=== PATIENT | male | born 1950 | race Caucasian/White ===

== ENCOUNTER → 2016-12-21 | Outpatient (CLI) | payer MEDICARE ==
[~2016-12-21] MED LIST: IOHEXOL 300 MG/ML 75 ML VIAL IV ONE
--- NOTE | 2016-12-21 14:00 | RAD ---
Exam performed: Ultrasound evaluation of the right neck. History: Palpable lump. Date of service: 12/21/16. Comparison: None available Discussion: Targeted sonographic evaluation of the right subareolar region is performed with an area of palpable concern. There is a large solid mass containing cystic area in internal vascularity measuring 3.1 x 2.3 x 2.6 cm. Impression: Large solid vascular mass in the right submental region. The etiology of this mass is not clear and may be related to an enlarged abnormal lymph node. Evaluation with CT neck with contrast may be of additional benefit.
--- NOTE | 2016-12-21 16:01 | RAD ---
CT scan of the neck with contrast 12/21/2016 Clinical history: Right neck mass. Technique: After the intravenous administration of 75 cc of Omnipaque 300, contiguous, 3 mm axial sections were obtained through the neck. A radiopaque marker was placed along the right neck in the area where the patient feels a palpable abnormality. Findings: Comparison is made to patient's ultrasound of the right neck performed earlier today. Within the inferior aspect of the right parotid gland a rounded slightly heterogeneous solid mass is seen. This measures 2.8 x 2.8 x 2.2 cm in transverse, craniocaudal and AP dimensions. This corresponds to the abnormality seen on the patient's ultrasound. It corresponds to the patient's palpable abnormality. Its CT appearance is nonspecific. Differential considerations would include a pleomorphic adenoma versus Warthin's tumor. A malignant lesion such as mucoepidermoid carcinoma carcinoma is not excluded. No additional abnormality of the right parotid gland is seen. The left parotid gland, submandibular glands and thyroid gland are within normal limits. The mucosal structures of the nasopharynx, oropharynx, hypopharynx and larynx are within normal limits. No cervical lymphadenopathy is seen. A 1.7 cm mucous retention cyst is seen involving the right maxillary sinus. Degenerative changes are seen involving the uncovertebral and facet joints throughout the cervical spine. Impression: 2.8 cm solid rounded slightly heterogeneous mass is seen involving the inferior aspect of the right parotid gland. This corresponds to the patient's palpable abnormality. Differential considerations include a pleomorphic adenoma or Warthin's tumors. A malignant lesion such as a mucoepidermoid carcinoma is not excluded.
== END | disposition home or self-care (01) ==
LOC: US 14:13
PROVIDERS: ATTEND Otolaryngology
DX: K11.8 Other diseases of salivary glands (principal)
CPT/HCPCS: 70491; 76881; Q9967

== ENCOUNTER → 2017-01-04 | Outpatient (CLI) | payer MEDICARE ==
[~2017-01-04] VITALS: Ht 167.6 cm; Wt 102.1 kg
[~2017-01-04] MED LIST changes: -IOHEXOL 300 MG/ML 75 ML VIAL IV ONE; +LIDOCAINE 1% / SOD BICARB 8.4% 20 ML VIAL. IJ ONE; +PRAV80TA2 PO
[2017-01-04 12:41] LABS: PROTHROMBIN TIME PATIENT 12.3 SEC (11.7-14.0)
[2017-01-04 12:45] VITALS: BP 152/103
--- NOTE | 2017-01-04 14:45 | RAD ---
Ultrasound-guided fine needle aspiration and core biopsy of right parotid mass 01/04/2017 Indication: Right parotid mass, present for approximately 10 years, slowly growing according to patient. Discussion: The risks and benefits of the procedure were discussed the patient. Informed consent was obtained. Timeout procedure was performed. The right face was prepped and draped using sterile barrier technique. 1% lidocaine without epinephrine was administered to the skin for local anesthesia. Ultrasound evaluation demonstrated a heterogenous predominantly hypoechoic mass in the right parotid gland. Cystic areas within the mass were also noted. Some mild internal blood flow and possible areas of punctate calcification is seen. Under direct ultrasound guidance 4 passes with a 25-gauge needle were made through the mass. Pathology was present at the time of exam spelled FNA samples may be suboptimal. 2 passes with automated 20-gauge core biopsy needle were then made. Manual pressure was held for several minutes. Repeat ultrasound demonstrated no evidence of hematoma or other complication. Impression: Successful ultrasound-guided biopsy of right parotid mass as described
--- NOTE | 2017-01-06 13:05 | PATHOLOGY ---
PATHOLOGY REPORT * * * * * * * * FINAL DIAGNOSIS: Parotid, "right parotid mass biopsy": - Chronic inflammation and fibrosis. (see comment) COMMENT: There is no evidence of malignancy. Correlate with fine needle aspiration ([id number]). Suggest clinical and radiological correlation as the biopsy may not be statement services representative. This case is also reviewed by Dr. Holly Santoyo who agrees with the diagnosis (SHA:mgr; 01/05/2017) REPORT ELECTRONICALLY SIGNED BY: Nacho Freeman M.D. DATE/TIME: 01/06/2017 13:04 * * * * * * * * GROSS PATHOLOGY: Specimen received fresh labeled "Princess Minor", right parotid mass biopsy consists of a minute lazo piece of tissue measuring 0.1 cm in greatest dimension, all submitted in cassette labeled A1. Due to the minute nature of the biopsy, it may not survive processing. (SHA:rljose; 01/04/2017) INITIAL CPT CODE(S): A; 61595 Professional services performed [place] [address] Technical services performed by [facility] at [address] [place] [address] [address] [address]. SPECIMEN(S) RECEIVED: A.Right parotid mass CLINICAL HISTORY: Right parotid mass, 3 cm. PROCEDURE: Right parotid F and A. PATIENT: PRINCESS MINOR /AGE: 7 1950 (Age: 66) PATIENT #: [id number] ALT CASE #: SPECIMEN COLLECTION DATE: 01/04/2017 SPECIMEN RECEIVED DATE: 01/04/2017 [facility] - [address] [place] [address] - PHONE: [phone] * * * END OF REPORT * * *
--- NOTE | 2017-01-06 13:17 | PATHOLOGY ---
CYTOPATHOLOGY REPORT CLINICAL HISTORY: Right parotid mass 3.0 cm. See also [id number]. SPECIMEN(S) RECEIVED: A.Fine needle aspiration, Right parotid mass 3.0 cm FINAL DIAGNOSIS: Fine needle aspiration, right parotid mass 3.0 cm: - Myoepithelial cells admixed with stromal elements. - (see comment) COMMENT: These features are seen in pleomorphic adenoma. However, other parotid neoplasms cannot be entirely excluded as these can also be seen in other parotid lesions. The material aspirated may not be farm loan representative. This case is also reviewed by Dr. Holly Santoyo. (SHA:mgr; 01/05/2017) PATHOLOGIST: Nacho Freeman M.D. REPORT ELECTRONICALLY SIGNED BY: Nacho Freeman M.D. DATE/TIME: 01/06/2017 13:16 GROSS PATHOLOGY: A. Fine needle aspiration, Right parotid mass 3.0 cm: The specimen is labeled "Princess Minor" and consists of six fixed slides, five air dried slides. Thirty mL of clear colorless fluid in fixative from the needle rinse is also submitted and one ThinPrep slide and an alcohol fixed cell block were prepared from this material. (clt 01.04.2017) PROGRAM DIRECTOR AIR TALENT(S): BATOOL Hull([facility]) INITIAL CPT CODE(S): A; 49454, 75369 Professional services performed by [facility] [place] [address] Technical services performed by [facility] at [address] [place] [address], [place] [address]. PATIENT: PRINCESS MINOR /AGE: 7 1950 (Age: 66) SEX: M PATIENT #: [id number] ALT CASE #: SPECIMEN COLLECTION DATE: 01/04/2017 SPECIMEN RECEIVED DATE: 01/04/[address] [facility] [address] [place] [address], [address] [place] [address] PHONE: [phone] DIRECTOR: Chente Magdaleno M.D. * * * END OF REPORT * * *
== END | disposition home or self-care (01) ==
LOC: INTRAD 12:09
PROVIDERS: ATTEND Otolaryngology
DX: K11.9 Disease of salivary gland, unspecified (principal); I10 Essential (primary) hypertension; Z79.01 Long term (current) use of anticoagulants; Z88.0 Allergy status to penicillin
CPT/HCPCS: 10022; 36415; 85610; 85730

== ENCOUNTER → 2017-03-07 | Day surgery (SDC) | payer MEDICARE ==
[~2017-03-07] MED LIST changes: +HYDROmorphone 2 MG/ML VIAL IV PRN; +IV RINGERS,LACTATED 1000ML 1,000 ML IV SCH; -LIDOCAINE 1% / SOD BICARB 8.4% 20 ML VIAL. IJ ONE; +LIDOCAINE 1% PF 2 ML VIAL. ID PRN; +MORPHINE SULFATE 4 MG/ML DISP.SYRIN. IV PRN; +ONDANSETRON PF 4 MG/2 ML VIAL. IV PRN; +PROCHLORPERAZINE 10 MG/2 ML VIAL. IV PRN; +PROPOFOL 40 ML IV ONE; +fentaNYL PF VIAL 100 MCG/2 ML VIAL IV PRN; +fentaNYL PF VIAL 100 MCG/2 ML VIAL ONE; +lisinopril
--- NOTE | 2017-03-07 08:32 | PDOC1 ---
HISTORY & PHYSICAL H&P Chacho Soto [id number] 1950 11/29/2016 03:40 PM 04/24 [employer] [facility], [facility] OUR PATIENTS COME FIRST [address] [place] [address]. [phone] Patient: Chacho Soto Date of : 1950 Date: 11/29/2016 3:40 PM Visit Type: Consult This 66 year old male presents for Bloating and Screening colonoscopy. History of Present Illness: 1. Bloating Duration is 5 Months. Location is epigastric, midline. There is no radiation. The patient describes it as aching, bloating and gnawing. Context: no pattern noted. Denies aggravating factors. Denies relieving factors. 2. Screening colonoscopy No prior screening. Denies risk factors. Associated symptoms include abdominal pain. Pertinent negatives include change in bowel habits, change in stool caliber, constipation, decreased appetite, diarrhea, melena, nausea, rectal bleeding, vomiting, weight gain and weight loss. Additional information : No family history of colon cancer, No family history of Crohn's/colitis and No NSAID/ASA use. INTAKE COMMENTS: Intake Comments: Nurse Note: the pt is here today to schedule a screening colonoscopy, the pt states that he is having issues with bloating. PROBLEM LIST: Problem Description Onset Date Chronic Notes Obesity 11/29/2016 Y HTN 11/29/2016 Y PAST MEDICAL/SURGICAL HISTORY (Detailed) Patient reported no relevant past medical/surgical history. Medications (Active): Started Medication Directions Instruction Stopped 11/29/2016 aspirin 81 mg tablet,delayed release take 1 tablet by oral route every day Allergies: Ingredient Reaction Medication Name Comment PENICILLIN REVIEW OF SYSTEMS System Neg/Pos Details Constitutional Negative Chills, fever, malaise, weight gain and weight loss. ENMT Negative Sore throat. Eyes Negative Double vision. Respiratory Negative Dyspnea and wheezing. Cardio Negative Chest pain and irregular heartbeat/palpitations. GI Positive Abdominal pain, See HPI. GI Negative Change in bowel habits, change in stool caliber, constipation, decreased appetite, diarrhea, melena, nausea, see HPI, rectal bleeding and vomiting. Negative Dysuria and hematuria. Endocrine Negative Cold intolerance and heat intolerance. Psych Negative Anxiety. Integumentary Negative Hives and rash. MS Negative Joint pain. Magdaleno/Lymph Negative Easy bleeding and easy bruising. Allergic/Immuno Negative Food allergies. VITAL SIGNS Time BP mm/Hg Pulse /min Resp /min Temp F Ht ft Ht in Ht cm Wt lb Wt kg BMI kg/ m2 BSA m2 O2 Sat% 3:28 PM 140/80 74 98.1 5.0 6.00 167.64 221.80 100.607 35.80 2.16 97 Time Measured by 3:28 PM Promise Forrest PHYSICAL EXAM: Exam Findings Details Constitutional Normal Well developed. Eyes Normal Conjunctiva - Right: Normal, Left: Normal. Sclera - Right: Normal, Left: Normal. Nasopharynx Normal Lips/teeth/gums - Normal. Neck Exam Normal Inspection - Normal. Thyroid gland - Normal. Respiratory Normal Inspection - Normal. Auscultation - Normal. Cardiovascular Normal Regular rate and rhythm. No murmurs, gallops, or rubs. Vascular Normal Pulses - Carotids: Normal, Femoral: Normal, Dorsalis pedis: Normal. Abdomen Normal Inspection - Normal. Anterior palpation - No guarding. No abdominal tenderness. No hepatic enlargement. No splenic enlargement. No hernia. No ascites. Skin Normal Inspection - Normal. Extremity Normal No edema. Psychiatric * Oriented to time, place, person and situation. Psychiatric Normal Appropriate mood and effect. Assessment/Plan # Detail Type Description 1. Assessment Pain of upper abdomen (R10.10). Plan Orders Further diagnostic evaluations ordered today include(s) EGD to be performed today. 2. Assessment Encounter for screening colonoscopy (Z12.11). Plan Orders Further diagnostic evaluations ordered today include(s) Colonoscopy to be performed today. He is to schedule a follow-up visit with Sharri Woodruff MD upon completion of work-up Electronically signed by: Sharri Woodruff MD 11/29/2016 04:46 PM Document generated by: Sharri Woodruff 11/29/2016 04:46 PM Pete Burton MD, Family Practice; John Kern MD Internal Medicine; Guadalupe Wang MD, Internal Medicine; Amalia Woodruff MD Internal Medicine; Sharri Woodruff MD, Gastroenterology; Obey Joseph MD, Rheumatology, S. Carlos Montejo, Physical Medicine/Rehab Quita Rubio APRN ------ 03/07/17 Patient seen and examined. No change in H&P. SHARRI WOODRUFF MD Mar 07, 2017 08:32
[2017-03-07 09:47] VITALS: BP 113/59
--- NOTE | 2017-03-08 12:02 | PATHOLOGY ---
PATHOLOGY REPORT * * * * * * * * FINAL DIAGNOSIS: A. Gastric biopsy, antrum: - Active chronic gastritis, moderate, with rare Helicobacter organisms identified. B. Esophageal biopsy, distal esophagus: - Segments of hyperplastic squamous esophageal mucosa with intraepithelial eosinophils, and esophagogastric mucosa showing active chronic inflammation. See comment. COMMENT: Sections of the gastric antral biopsy reveal segments of gastric antral mucosa showing congestion and moderate active chronic inflammation. An immunoperoxidase stain for Helicobacter reveals rare Helicobacter organisms. There is no evidence of malignancy. Sections of the distal esophageal biopsy reveal segments of hyperplastic squamous esophageal mucosa and esophagogastric mucosa showing moderate active chronic inflammation. There are intraepithelial eosinophils within the hyperplastic squamous esophageal mucosa. In most areas, the number of intraepithelial eosinophils is consistent with reflux esophagitis. Focally, there are approximately 20 intraepithelial eosinophils/hpf, raising the possibility of eosinophilic esophagitis. Correlate with clinical and endoscopic findings. (JPM:mgr; 03/08/2017) Special Stain Performed: Immunoperoxidase stain for Helicobacter (A1) REPORT ELECTRONICALLY SIGNED BY: Kapil Patterson M.D. DATE/TIME: 03/08/2017 12:01 * * * * * * * * GROSS PATHOLOGY: A. Received in formalin labeled "Princess Soto, antrum, BX," are 2 segments of lazo soft tissue measuring 0.6 x 0.2 x 0.3 cm in aggregate dimensions and measuring 0.3 cm each in maximum dimension. The specimen is submitted entirely in cassette A1. B. Received in formalin labeled "Princess Soto, BX distal esophagus," are 2 segments of lazo soft tissue measuring 0.8 x 0.2 x 0.2 cm in aggregate dimensions and ranging from 0.3 to 0.5 cm in maximum dimension. The specimen is submitted entirely in cassette B1. (TSD; 03/07/2017) INITIAL CPT CODE(S): A; 52459, 70797 B; 43039 Professional services performed by [employer] at [facility] [address] [place] [address] Technical services performed by [facility] at [address] [place] [address], [address], [place] [address]. SPECIMEN(S) RECEIVED: A.Antrum biopsy B.Biopsy distal esophagus CLINICAL HISTORY: Abdominal pain, bloating; esophagitis, antral erosions, diverticulosis PATIENT: PRINCESS SOTO /AGE: 7 1950 (Age: 66) PATIENT #: [id number] ALT CASE #: SPECIMEN COLLECTION DATE: 03/07/2017 SPECIMEN RECEIVED DATE: 03/07/2017 [facility] - [address] [place] [address] - PHONE: [phone] * * * END OF REPORT * * *
== END | disposition home or self-care (01) ==
LOC: ENDOS 08:11
PROVIDERS: ATTEND Internal Medicine Gastroenterology
DX: Z12.11 Encounter for screening for malignant neoplasm of colon (principal); K57.30 Diverticulosis of large intestine without perforation or abscess without bleeding; K21.0 Gastro-esophageal reflux disease with esophagitis; K31.89 Other diseases of stomach and duodenum; I10 Essential (primary) hypertension; Z88.0 Allergy status to penicillin
CPT/HCPCS: 43239; 45378; 88305; 88342; J2704; J3010

== ENCOUNTER → 2018-12-18 | Outpatient (CLI) | payer MEDICARE ==
[2017-03-07 09:47] VITALS: BP 113/59
[~2018-12-18] MED LIST changes: +BARIUM SULFATE 340 GM SUSPENSION. PO ONE; +BARIUM SULFATE 60% 355 ML SUSP PO ONE; -HYDROmorphone 2 MG/ML VIAL IV PRN; -IV RINGERS,LACTATED 1000ML 1,000 ML IV SCH; -LIDOCAINE 1% PF 2 ML VIAL. ID PRN; -MORPHINE SULFATE 4 MG/ML DISP.SYRIN. IV PRN; -ONDANSETRON PF 4 MG/2 ML VIAL. IV PRN; -PROCHLORPERAZINE 10 MG/2 ML VIAL. IV PRN; -PROPOFOL 40 ML IV ONE; +SIMETHICONE/SOD BICARB/CITRIC ACID PACKET. PO ONE; -fentaNYL PF VIAL 100 MCG/2 ML VIAL IV PRN; -fentaNYL PF VIAL 100 MCG/2 ML VIAL ONE
--- NOTE | 2018-12-18 10:20 | RAD ---
Examination: ESOPHAGRAM/BARIUM SWALLOW History: Dysphagia at the lower cervical levels Comparison/Correlation: None Findings: Air contrast and single contrast esophagram exam performed. Barium pill was also administered. Fluoroscopy was utilized for 1.8 minutes. 13 images were acquired. Adequate distention of the esophagus is evident with no stricture. Mass effect upon the posterior aspect of the esophagus when it is distended with contrast is noted in the lower cervical spine due to spurring which is especially noted at C5-6 and to a lesser extent at C6/7. No suspicious filling defects. No webs or diverticuli. Barium pill which was administered has normal transit into the stomach. Normal esophageal motility noted during the exam. Small sliding hiatal hernia is noted on prone Valsalva drinking with Schatzki's ring evident. No reflux identified during the course of this exam. Impression: Small sliding hernia. No reflux visualized. Mass effect upon the cervical esophagus due to spurring of the lower cervical spine. No suspicious filling defect or stricture. Electronically signed by: Osmar Hoffman MD (12/18/2018 10:17 AM) [facility]
== END | disposition home or self-care (01) ==
LOC: RAD 08:26
PROVIDERS: ATTEND Internal Medicine Gastroenterology
DX: K44.9 Diaphragmatic hernia without obstruction or gangrene (principal); K22.2 Esophageal obstruction
CPT/HCPCS: 74220